=== PATIENT | female | born 2000 | race Caucasian/White ===

== ENCOUNTER 2022-09-15 17:48 | Emergency (ER) | payer BC, SELFPAY ==
[2022-09-15 17:59] VITALS: BP 123/72; PULSE 85; RESP 16; TEMP 36.6; O2SAT 98; BMI 25.7
--- NOTE | 2022-09-15 19:33 | ED_ITS ---
HPI - Psych General Chief Complaint: Psychiatric Symptoms Stated Complaint: anti psychotics have stopped working Time Seen by Provider: 09/15/22 18:04 Mode of arrival: Ambulatory History of Present Illness HPI Narrative: 22-year-old patient born female, prefers pronounced he him presents with chief complaint of concerns that medications are not working. He has bipolar and they question whether not schizoaffective and has been on olanzapine 5 mg twice daily and states that over the past few days if not weeks he has been having increasing auditory hallucinations. He denies any suicidal or homicidal ideations. He is able to care for himself and has good support. He has no prescriber or mental health provider currently. Related Data Previous Rx's Medication Instructions Recorded olanzapine 10 mg tablet 10 mg PO BID #60 tabs 09/15/22 Review of Systems Review of Systems Narrative: GENERAL: Denies chills, fatigue, malaise, fever, sweats. HEENT: Denies sinus pain, ear pain, sore throat, difficulty swallowing, dizziness. RESPIRATORY: Denies dyspnea, cough, wheezing, hemoptysis, sputum. CARDIOVASCULAR: Denies chest pain, palpitations, orthopnea, edema, GASTROINTESTINAL: Denies nausea, vomiting, abdominal pain, diarrhea, constipation, melena. : Denies dysuria, frequency, incontinence, hematuria, urinary retention. MUSCULOSKELETAL: denies weakness, joint pain, or bony pain SKIN: Denies rash, skin lesions, or other NEUROLOGIC: Denies weakness, headache, numbness, change in speech, confusion, seizures, incoordination. PSYCHIATRIC: See HPI 12 point review of systems is negative except for those stated above Patient History Substance Use Type: marijuana Exam Narrative Exam Narrative: GENERAL: [22] year old patient appears stated age. Well-developed patient, in mild distress. With 2 friends at bedside HEAD: Atraumatic. Normocephalic. EYES: Pupils equal round and reactive. Extraocular motions intact. No scleral icterus. No injection or drainage. ENT: Nose without bleeding, purulent drainage. Throat without erythema, tonsillar hypertrophy or exudate. Airway patent. NECK: Trachea midline. Non tender CARDIOVASCULAR: Regular rate and rhythm without murmurs, gallops, or rubs. RESPIRATORY: Clear to auscultation. Breath sounds equal bilaterally. No wheezes, rales, or rhonchi. GASTROINTESTINAL: Abdomen soft, non-tender, nondistended. EXTREMITIES: No edema or joint tenderness. BACK: Nontender without deformity or crepitance. No flank tenderness. NEURO: AOx3. SKIN: No rash or erythema of visible areas Initial Vital Signs Initial Vital Signs: Vital Signs Temperature 98 F 09/15/22 17:59 Pulse Rate 85 09/15/22 17:59 Respiratory Rate 16 09/15/22 17:59 Blood Pressure 123/72 09/15/22 17:59 Pulse Oximetry 98 09/15/22 17:59 Oxygen Delivery Method Room Air 09/15/22 17:59 Course Vital Signs Vital signs: Vital Signs - 8 hr 09/15/22 17:59 Temperature 98 F Pulse Rate 85 Respiratory Rate 16 Blood Pressure 123/72 Pulse Oximetry 98 Oxygen Delivery Method Room Air MDM - Psych MDM Narrative Medical decision making narrative: [22] year old patient presents with increasing auditory hallucinations Multiple etiologies for patient's symptoms considered including, but not limited to: [SI, HI, medical noncompliance, inappropriate medication versus other] No prior charts available Primary Historian: patient I had good bedside discussion with patient and recommended doing a medical clearance, holding overnight to pursue [facility] consultation and possible hospitalization, however he was not interested at this time. He has good capacity to make these decisions and the alternative we discussed was increasing the dose of his olanzapine from 5 mg to 10 mg twice daily with very strict and clear return precautions that are understood based on his ability to verbalize them back Patient's symptoms improved over duration of stay with above-stated therapies. Findings and discharge diagnosis discussed with patient/family followed by verbalization of understanding Return precautions discussed with patient/family whom verbalize understanding of diagnosis and plan Discharge Plan Departure Patient Disposition: Home Clinical Impression: Suicidal ideation Instructions: DI for Suicidal Ideation-Adult Activity Restrictions/Additional Instructions: *You have been diagnosed with [suicidal ideation without a plan and increasing auditory hallucinations] *What to do: *Please continue to take your regular medications as directed. [x ] New medication prescriptions sent to your pharmacy: [ [facility] in [place]] [ ] New medication written as a paper prescription [ ] No new medications given *Please follow up with your primary care provider in 2-3 days, call for an appointment. Let them know you were seen in the Emergency Department and that we ask that you be seen in follow up. We will electronically transmit a record of today's note if your PCP is in our system *If you feel that you are entering into mental health crisis you have multiple options 1. Return to the ER immediately 2. Call the Crisis Line at [phone] 3. Send an anonymous text by sending the word Aman to [phone] 4. Navigate your web browser to [email or web address] to engage in anonymous chat with a mental health worker *Return to Emergency Department if you should have any new, worsening or concerning symptoms, such as [fever greater than 101 F, shaking chills, worsening pain, persistent vomiting or other bothersome symptoms] Prescriptions: New olanzapine 10 mg tablet 10 mg PO BID Qty: 60 0RF Stand Alone Forms: Patient Portal/API, Work Release Note
[2022-09-15 22:53] VITALS: BP 121/78; PULSE 83; RESP 16; TEMP 36.8; O2SAT 97
[2022-09-15 23:55] VITALS: BP 108/62; PULSE 64; RESP 16; TEMP 36.4; O2SAT 99
== END 2022-09-15 23:58 | disposition home or self-care (01) ==
PROVIDERS: Emergency Provider Emergency Medicine
DX: R45.851 Suicidal ideations (principal); R44.0 Auditory hallucinations
CPT/HCPCS: 99282; 99283